=== PATIENT | female | born 1970 | race African-American/Black ===

== ENCOUNTER 2018-07-02 17:24 | Emergency (ER) | payer BC ==
[~2018-07-02] VITALS: Ht 167.6 cm; Wt 76.0 kg
[2018-07-02 19:08] VITALS: BP 109/77
== END 2018-07-02 19:11 | disposition home or self-care (01) ==
LOC: ER 17:24
DX: R06.02 Shortness of breath (principal); T40.7X5A Adverse effect of cannabis (derivatives), initial encounter; Y92.9 Unspecified place or not applicable
CPT/HCPCS: 93005; 99283